=== PATIENT | female | born 1990 | race Caucasian/White ===

== ENCOUNTER 2022-11-19 07:38 | Inpatient (IN) ==
[2022-11-19] MEDS ORDERED: OXYTOCIN 30 UNITS/500 ML BAG IV PRN (09:32)
[2022-11-19] MEDS ORDERED: LIDOCAINE 1% LOCAL 20 ML VIAL INFIL PRN (09:32)
[2022-11-19] MEDS: ONDANSETRON INJ 2 MG/ML 2 ML VIAL IV PRN (09:33)
[2022-11-19] MEDS ORDERED: PENICILLIN G POTASSIUM 6 MU in DEXTROSE 5% 250 ML IV STA (09:42)
--- NOTE | 2022-11-19 09:49 | History & Physical Report ---
Date of Service November 19, 2022 Assessment & Plan (1) Polyhydramnios: Plan: Cervidil for cervical ripening Admission and Anticipated Discharge Date Admission Date: November 19, 2022 History of Present Illness Chief Complaint: induction of labor Primary Care Provider: [facility] PCP 32 F P0000 at 39 weeks admitted for IOL for polyhydramnios. GBS is positive. Allergies Allergy/AdvReac Type Severity Reaction Status Date / Time No Known Allergies Allergy Unknown Verified 09/23/22 11:18 Home Medications Medication Instructions Recorded Confirmed Type bupropion HCl 100 mg tablet,12 hr 100 mg PO .DAILY AT NOON 12/24/19 09/23/22 History sustained-release (Wellbutrin SR) fluoxetine 40 mg capsule (Prozac) 40 mg PO QAM 12/24/19 11/17/22 History lamotrigine 200 mg tablet 200 mg PO QAM 12/24/19 11/17/22 History (Lamictal) bupropion HCl 150 mg tablet,12 hr 300 mg PO QAM 09/21/21 11/17/22 History sustained-release lorazepam 0.5 mg tablet 0.5 mg PO DAILY PRN Anxiety 09/21/21 09/23/22 History methylphenidate HCl 10 mg tablet 10 mg PO DAILY 09/23/22 11/17/22 History methylphenidate HCl 20 mg tablet 20 mg PO QAM 09/23/22 11/17/22 History ondansetron HCl 8 mg tablet 8 mg PO Q8H PRN Nausea 09/23/22 09/23/22 History Patient History Medical History Anxiety and depression Bipolar 2 disorder, major depressive episode History of UTI Migraines Narcolepsy PTSD (post-traumatic stress disorder) Surgical History History of appendectomy History of wisdom tooth extraction Social History Smoking Status: Never smoker Second Hand Exposure: No; Hx Alcohol Use: No Hx Substance Use: No Preferred Language: Hungarian Communication Ability: Effective Prototype Sewer Required: No Beliefs That Will Affect Care: None marital status: Current Living Situation: Spouse Current Living Situation Comment: Lives with and 3 cats Other Information That Helps Us Care for You: No Feels Safe at Home: Yes Safety Concerns: Feels Safe At This Time Assistive Devices: None OB History polyhydramnios 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 History neg Review of Systems All systems reviewed & are unremarkable except as noted in HPI & below Physical Exam Constitutional: WD/WN, vitals as above Eyes: PERRL, conjunctivae normal, anicteric sclerae Respiratory: normal respiratory effort, lungs clear to auscultation Gastrointestinal (Abdomen): Inspection/Auscultation: abdomen normal to inspection Skin: no rashes, warm and dry Neurologic: patellar DTR's 2+ bilat, sensation intact Psychiatric: A+Ox3, euthymic affect Genitourinary: Manual OB Exam: + cervical dilation fingertip, + cervical effacement 50% and + station high OB Exam Monitor Tracing: + external FHT monitor used, + external uterine monitor used, + category I and + normal FHT variability Results & Data Vital Signs (Past 12 Hours) Vital Signs Temp Pulse Resp BP 11/19/22 08:17 37 C 114 H 16 127/86 11/19/22 09:33 88 122/67 11/19/22 08:42 93 H 132/80 11/19/22 07:50 16 11/19/22 07:50 37.0 C 16 11/19/22 07:48 114 H 127/86 Code Status & VTE Plan VTE Prophylaxis Plan VTE Prophylaxis will be ordered: No Monitoring External Monitor Cat 1
[2022-11-19 10:00] LABS: Hematocrit (blood only) 36.4 % (37.0-47.0); Hemoglobin 12.6 g/dl (12.0-16.0); Mean Corpuscular Hgb Conc 34.6 g/dL (32.0-36.0); Mean Corpuscular Volume 86.7 fL (80.0-100.0); Mean Platelet Volume 10.3 fL (9.4-12.4); Platelet Count 309 K/uL (130-400); RDW Coefficient of Variation 17.7 % (11.5-14.5); RDW Standard Deviation 55.6 fL (36.4-46.3); White Blood Count 10.08 K/ul (4.8-10.8)
[2022-11-19] MEDS ORDERED: DINOPROSTONE 10 MG INSERT PV ONE (10:00)
--- NOTE | 2022-11-19 10:59 | Labor Progress Brief Note ---
Date of Service November 19, 2022 Assessment & Plan Admission and Anticipated Discharge Date Admission Date: November 19, 2022 Physical Exam Genitourinary: OB Exam Monitor Tracing: + external FHT monitor used, + external uterine monitor used, + category I and + normal FHT variability Cervidil 10 mg placed vaginally Results & Data Vital Signs (Past 12 Hours) Vital Signs Temp Pulse Resp BP 11/19/22 08:17 37 C 114 H 16 127/86 11/19/22 10:14 86 120/72 11/19/22 09:33 88 122/67 11/19/22 08:42 93 H 132/80 11/19/22 07:50 16 11/19/22 07:50 37.0 C 16 11/19/22 07:48 114 H 127/86
[2022-11-19] MEDS: LACTATED RINGER'S 1,000 ML IV PRN (15:14)
[2022-11-19] MEDS ORDERED: BUTORPHANOL TARTRATE 1 MG/ML VIAL IV PRN (21:15)
[2022-11-20] MEDS ORDERED: miSOPROStoL 50 MCG TAB PO ONE (02:44)
[2022-11-20] MEDS ORDERED: OXYTOCIN 30 UNITS/500 ML BAG IV SCH (08:30)
--- NOTE | 2022-11-20 08:36 | Labor Progress Brief Note ---
Date of Service November 20, 2022 Assessment & Plan (1) Normal labor: Present on Admission?: No Plan start Pitocin to augment labor s/p antibiotics x 1 dose of antibiotics for GBS positive status pain meds including epidural as the pt desires Admission and Anticipated Discharge Date Admission Date: November 19, 2022 Physical Exam Constitutional: WD/WN, vitals as above well developed and well nourished Genitourinary: no vaginal lesions, no adnexal mass OB Exam Abdomen: + heart tones (140s, Good variability, Positive accelerations) and + vertex Manual OB Exam: + cervical dilation 3 cm, + cervical effacement 70% and + station high OB Exam Monitor Tracing: + external FHT monitor used and + category I Results & Data Vital Signs (Past 12 Hours) Vital Signs Temp Pulse Resp BP 11/20/22 07:46 36.5 C 79 18 117/71 11/20/22 07:16 18 11/20/22 07:16 36.5 C 18 11/20/22 07:18 79 117/71 11/20/22 05:09 36.7 C 11/20/22 03:59 18 11/20/22 03:59 36.6 C 18 11/20/22 03:58 77 111/61 11/19/22 22:21 36.7 C 11/19/22 22:20 70 129/86 Supervising Physician Co-Signing Physician Notes Dr. Renny Clay MD.
[2022-11-20] MEDS: ONDANSETRON INJ 2 MG/ML 2 ML VIAL IV PRN ×2 (08:41→21:18)
[2022-11-20] MEDS: lamoTRIgine 100 MG TAB PO SCH (09:04)
[2022-11-20] MEDS: buPROPion XL 300 MG TABCR PO SCH (09:05)
[2022-11-20] MEDS: FLUoxetine HCL 20 MG CAP PO SCH (09:06)
[2022-11-20] MEDS: METHYLPHENIDATE HCL 10 MG TABLET PO SCH (09:25)
[2022-11-20] MEDS: PENICILLIN G POTASSIUM 3 MU in DEXTROSE 5% 100 ML IV PRN ×4 (09:27→23:32)
[2022-11-20] MEDS: LACTATED RINGER'S 1,000 ML IV PRN ×2 (11:43→22:57)
[2022-11-20] MEDS ORDERED: ePHEDrine sulfate 50 MG/ML AMP ONE (13:49)
[2022-11-20] MEDS ORDERED: fentaNYL 2MCG/ML ROPIVACAINE 1.25MG/ML 100 ML BAG EPI ONE (13:50)
[2022-11-20] MEDS ORDERED: SODIUM CHLORIDE 0.9% PF INJ 10 ML VIAL ONE (13:50)
[2022-11-20] MEDS ORDERED: LIDOCAINE 2%/EPINEPHRINE 1:200,000 20 ML PF ONE (13:50)
[2022-11-20] MEDS ORDERED: fentaNYL citrate PF 100 MCG/2 ML VIAL ONE ×2 (13:50→23:47)
[2022-11-20] MEDS ORDERED: BUPIVACAINE 0.25% PF 30 ML VIAL ONE (13:50)
--- NOTE | 2022-11-20 15:10 | Anesthesiology Consultation ---
Date of Service November 20, 2022 Assessment & Plan Chart Review Chart Review: Acceptable Risk for Labor Epidural Consults Requested none ASA [id number] Proposed Anesthesia Anesthesia Type: CSE History Height/Weight Height: 5 ft 1 in Weight: 85.729 kg Allergies Allergy/AdvReac Type Severity Reaction Status Date / Time No Known Allergies Allergy Unknown Verified 09/23/22 11:18 Medications Home Medications Medication Instructions Recorded Confirmed Last Taken fluoxetine 40 mg capsule (Prozac) 40 mg PO QAM 12/24/19 11/19/22 11/19/22 07:00 lamotrigine 200 mg tablet 200 mg PO QAM 12/24/19 11/19/22 11/19/22 07:00 (Lamictal) bupropion HCl 150 mg tablet,12 hr 300 mg PO QAM 09/21/21 11/19/22 11/19/22 07:00 sustained-release lorazepam 0.5 mg tablet 0.5 mg PO DAILY PRN Anxiety 09/21/21 11/19/22 11/25/21 methylphenidate HCl 10 mg tablet 10 mg PO DAILY 09/23/22 11/19/22 11/18/22 15:00 methylphenidate HCl 20 mg tablet 20 mg PO QAM 09/23/22 11/19/22 11/19/22 07:00 ondansetron HCl 8 mg tablet 8 mg PO Q8H PRN Nausea 09/23/22 11/19/22 09/22/22 09 :30 Active Medications Generic Name Dose Route Start Last Admin Trade Name Freq PRN Reason Stop Dose Admin Bupropion HCl 300 mg 11/20/22 09:00 11/20/22 09:05 Bupropion Xl 300 Mg Tabcr PO 12/20/22 08:59 300 mg QAM ABEL Administration Butorphanol Tartrate 1 mg 11/19/22 21:15 11/20/22 11:47 Butorphanol Tartrate 1 Mg/Ml Vial IV 12/19/22 21:14 1 mg Q2HWA PRN Administration Pain Fluoxetine HCl 40 mg 11/20/22 09:00 11/20/22 09:06 Fluoxetine Hcl 20 Mg Cap PO 12/20/22 08:59 40 mg QAM ABEL Administration Lactated Ringer's 1,000 mls @ 125 mls/hr 11/19/22 09:32 11/20/22 11:43 Lr IV 11/21/22 09:31 125 mls/hr .Q8H PRN Administration L&D Protocol Protocol Penicillin G Potassium 3 mu/ 106 mls @ 100 mls/hr 11/19/22 12:32 11/20/22 13:44 Dextrose IV 11/29/22 12:31 100 mls/hr Q4H PRN Administration GBS(+) Until Delivery Oxytocin 30 units in 500 mls @ 8 mls/hr 11/20/22 08:30 11/20/22 13:07 Pitocin IV 12/20/22 08:29 0.48 units/hr .Q24H ABEL 8 mls/hr Titration Protocol 0.48 UNITS/HR Lamotrigine 200 mg 11/20/22 09:00 11/20/22 09:04 Lamotrigine 100 Mg Tab PO 12/20/22 08:59 200 mg DAILY ABEL Administration Lidocaine HCl 20 ml 11/19/22 09:32 11/20/22 15:06 Lidocaine 1% Local 20 Ml Vial INFIL 12/19/22 09:31 3 ml ONCE PRN Administration Perineal/vaginal Repair Methylphenidate HCl 20 mg 11/20/22 09:00 11/20/22 09:25 Methylphenidate Hcl 10 Mg Tablet PO 12/04/22 08:59 20 mg QAM ABEL Administration Ondansetron HCl 4 mg 11/19/22 09:23 11/20/22 08:41 Ondansetron Inj 2 Mg/Ml 2 Ml Vial IV 12/19/22 09:22 4 mg Q4H PRN Administration Nausea Past Medical History Medical History Anxiety and depression Bipolar 2 disorder, major depressive episode History of UTI Migraines Narcolepsy PTSD (post-traumatic stress disorder) Past Surgical History Surgical History History of appendectomy History of wisdom tooth extraction Social History Smoking Status: Never smoker Hx Alcohol Use: No Hx Substance Use: No substance use type: does not use Physical Exam Vital Signs Last Vital Signs Temp 36.7 C 11/20/22 13:07 Pulse 82 11/20/22 15:07 Resp 18 11/20/22 11:32 BP 122/71 11/20/22 15:07 Pulse Ox 99 11/20/22 15:05 Testing Laboratory Results 11/19/22 09:49 Blood Type A Positive 11/19/22 09:49 Antibody Screen NEGATIVE 11/19/22 09:49
[2022-11-20] MEDS ORDERED: LIDOCAINE 2%/EPINEPHRINE 1:200,000 20 ML PF EPI STA (15:11)
[2022-11-20] MEDS ORDERED: BUPIVACAINE 0.25% PF 30 ML VIAL EPI PRN (15:11)
[2022-11-20] MEDS ORDERED: SODIUM CHLORIDE 0.9% PF INJ 10 ML VIAL EPI PRN (15:11)
[2022-11-20] MEDS ORDERED: LIDOCAINE 2% MPF LOCAL 5 ML VIAL EPI PRN (15:11)
[2022-11-20] MEDS ORDERED: NALOXONE HCL 0.4 MG/1 ML VIAL/CARP IV PRN (15:11)
[2022-11-20] MEDS ORDERED: ePHEDrine sulfate 50 MG/ML AMP IV PRN (15:11)
[2022-11-20] MEDS ORDERED: BUPIVACAINE 0.25% PF 30 ML VIAL EPI STA (15:11)
[2022-11-20] MEDS ORDERED: fentaNYL citrate PF 100 MCG/2 ML VIAL EPI STA (15:11)
[2022-11-20] MEDS ORDERED: NALOXONE HCL 1 MG in SODIUM CHLORIDE 0.9% 1000ML 1,000 ML IV PRN (15:11)
[2022-11-20] MEDS ORDERED: fentaNYL citrate PF 100 MCG/2 ML VIAL EPI PRN (15:11)
[2022-11-20] MEDS ORDERED: ROPIVACAINE 0.5% PF 5 MG/ML 20 ML VIAL EPI PRN (15:11)
[2022-11-20] MEDS ORDERED: diphenhydrAMINE 50 MG/ML VIAL IV PRN (15:11)
[2022-11-20] MEDS ORDERED: SODIUM CHLORIDE 0.9% PF INJ 10 ML VIAL EPI STA (15:11)
[2022-11-20] MEDS ORDERED: NALBUPHINE HCL INJ 10 MG/ML AMP IV PRN (15:11)
[2022-11-20] MEDS: fentaNYL 2MCG/ML ROPIVACAINE 1.25MG/ML 100 ML BAG EPI PRN (22:56)
[2022-11-20] MEDS ORDERED: NURSING L&D Epidural Breakthrough Pain Update ONE (22:58)
--- NOTE | 2022-11-20 23:54 | Anesthesia Procedure Note ---
Date of Service November 20, 2022 Anesthesia Epidural Re-Dose Vital Signs Temp Pulse Resp BP Pulse Ox 36.7 C 89 18 152/65 H 100 11/20/22 23:05 11/20/22 23:50 11/20/22 23:05 11/20/22 23:50 11/20/22 23:50 Notes Pain Intensity: 9 Dilatation (cm): 7.0 Effacement (%): 100 Heart Rate: 150 Called by nursing to evaluate epidural as the patient is having increased pain. The epidural was re-dosed with the following medications (all medications via epidural route) after negative aspiration of the epidural catheter for CSF/HEME. 2% lidocaine 5ml with fentanyl 100mcg. After Epidural Re-Dose Mental Status: alert / awake / arousable Pain: improving with treatment Airway Patency, RR, SpO2: stable & adequate BP & HR: stable & adequate
[2022-11-21] MEDS: PENICILLIN G POTASSIUM 3 MU in DEXTROSE 5% 100 ML IV PRN ×2 (03:54→08:10)
[2022-11-21] MEDS: fentaNYL 2MCG/ML ROPIVACAINE 1.25MG/ML 100 ML BAG EPI PRN ×2 (04:37→10:24)
[2022-11-21] MEDS ORDERED: fentaNYL citrate PF 100 MCG/2 ML VIAL ONE (04:54)
--- NOTE | 2022-11-21 05:00 | Anesthesia Procedure Note ---
Date of Service November 21, 2022 Anesthesia Epidural Re-Dose Vital Signs Temp Pulse Resp BP Pulse Ox 37.0 C 104 H 18 147/89 H 98 11/21/22 03:56 11/21/22 04:58 11/21/22 03:56 11/21/22 04:58 11/21/22 04:55 Notes Pain Intensity: 0 Dilatation (cm): 8.0 Effacement (%): 100 Heart Rate: 150 Called by nursing to evaluate epidural as the patient is having increased pain. The epidural was re-dosed with the following medications (all medications via epidural route) after negative aspiration of the epidural catheter for CSF/HEME. 2% lidocaine 5ml with fentanyl 100mcg. After Epidural Re-Dose Mental Status: alert / awake / arousable Pain: improving with treatment Airway Patency, RR, SpO2: stable & adequate BP & HR: stable & adequate
[2022-11-21] MEDS: LACTATED RINGER'S 1,000 ML IV PRN (06:31)
[2022-11-21] MEDS ORDERED: LIDOCAINE 2% MPF LOCAL 5 ML VIAL ONE (07:04)
--- NOTE | 2022-11-21 07:12 | Anesthesia Procedure Note ---
Date of Service November 21, 2022 Anesthesia Epidural Re-Dose Vital Signs Temp Pulse Resp BP Pulse Ox 36.6 C 96 H 16 121/66 98 11/21/22 05:05 11/21/22 07:08 11/21/22 05:22 11/21/22 07:08 11/21/22 07:05 Notes Pain Intensity: 0 Dilatation (cm): 8.0 Effacement (%): 100 Heart Rate: 150 Called by nursing to evaluate epidural as the patient is having increased pain. The epidural was re-dosed with the following medications (all medications via epidural route) after negative aspiration of the epidural catheter for CSF/HEME. 2% lidocaine 5ml. After Epidural Re-Dose Mental Status: alert / awake / arousable Pain: improving with treatment Airway Patency, RR, SpO2: stable & adequate BP & HR: stable & adequate
--- NOTE | 2022-11-21 07:18 | Labor Progress Brief Note ---
Date of Service November 21, 2022 Assessment & Plan (1) Normal labor: Present on Admission?: No Plan labor down and start pushing when the pt feels pressure Admission and Anticipated Discharge Date Admission Date: November 19, 2022 Physical Exam Constitutional: WD/WN, vitals as above Genitourinary: OB Exam Abdomen: + heart tones (140s, Good variability, positive accelerations ), + vertex and + regular contractions (q 2 to 3 min) Manual OB Exam: + cervical dilation 10 cm, + cervical effacement 100% and + station + 1 OB Exam Monitor Tracing: + external FHT monitor used and + cat egory I Results & Data Vital Signs (Past 12 Hours) Vital Signs Temp Pulse Resp BP Pulse Ox 11/21/22 07:14 97 H 116/59 L 11/21/22 07:12 103 H 125/69 11/21/22 07:10 101 H 118/68 99 11/21/22 07:08 96 H 121/66 11/21/22 07:05 110 H 98 11/21/22 07:00 110 H 100 11/21/22 06:56 87 115/60 11/21/22 06:55 88 98 11/21/22 06:50 97 H 99 11/21/22 06:45 120 H 97 11/21/22 06:40 84 97 11/21/22 06:41 86 166/80 H 11/21/22 06:35 81 97 11/21/22 06:30 83 97 11/21/22 06:26 77 137/70 11/21/22 06:25 78 96 11/21/22 06:20 81 97 11/21/22 06:15 80 97 11/21/22 06:10 80 96 11/21/22 06:11 80 140/73 11/21/22 06:05 78 97 11/21/22 06:00 80 97 11/21/22 05:55 79 143/70 H 97 11/21/22 05:50 78 97 11/21/22 05:45 82 97 11/21/22 05:40 80 97 11/21/22 05:41 87 136/74 11/21/22 05:35 78 97 11/21/22 05:30 79 97 11/21/22 05:25 86 97 11/21/22 05:22 83 16 140/66 11/21/22 05:20 85 97 11/21/22 05:19 85 143/70 H 11/21/22 05:16 83 142/69 H 11/21/22 05:15 84 97 11/21/22 05:13 86 147/71 H 11/21/22 05:10 98 11/21/22 05:10 85 11/21/22 05:10 86 149/72 H 11/21/22 05:07 80 148/72 H 11/21/22 05:05 36.6 C 81 97 11/21/22 05:03 91 H 158/73 H 11/21/22 05:00 109 H 97 11/21/22 05:01 113 H 167/88 H 11/21/22 04:58 104 H 147/89 H 11/21/22 04:55 104 H 98 11/21/22 04:50 106 H 98 11/21/22 04:45 100 H 154/68 H 96 11/21/22 04:40 106 H 98 11/21/22 04:35 110 H 98 11/21/22 04:30 102 H 98 11/21/22 04:29 110 H 133/75 11/21/22 04:25 99 H 97 11/21/22 04:20 95 H 98 11/21/22 04:15 103 H 97 11/21/22 04:14 127 H 114/56 L 11/21/22 04:10 128 H 97 11/21/22 04:05 98 H 98 11/21/22 04:00 101 H 96 11/21/22 03:58 107 H 127/77 11/21/22 03:56 18 11/21/22 03:56 37.0 C 18 11/21/22 03:55 100 H 97 11/21/22 03:50 94 H 96 11/21/22 03:45 96 H 97 11/21/22 03:43 103 H 110/62 11/21/22 03:40 101 H 98 11/21/22 03:35 93 H 97 11/21/22 03:30 97 H 18 98 11/21/22 03:28 88 104/54 L 11/21/22 03:25 91 H 98 11/21/22 03:20 94 H 98 11/21/22 03:15 89 98 11/21/22 03:14 88 116/59 L 11/21/22 03:10 87 98 11/21/22 03:05 86 98 11/21/22 03:00 88 20 100 11/21/22 02:58 86 127/64 11/21/22 02:55 127 H 100 11/21/22 02:50 104 H 99 11/21/22 02:45 94 H 99 11/21/22 02:43 88 132/78 11/21/22 02:40 80 98 11/21/22 01:47 36.9 C 11/21/22 02:35 88 98 11/21/22 02:30 78 98 11/21/22 02:28 86 128/76 11/21/22 02:25 75 98 11/21/22 02:20 83 98 11/21/22 02:15 75 99 11/21/22 02:13 72 129/70 11/21/22 02:10 84 98 11/21/22 02:05 76 99 11/21/22 02:00 74 98 11/21/22 01:58 78 132/74 11/21/22 01:55 79 99 11/21/22 01:50 75 99 11/21/22 01:45 98 11/21/22 01:45 90 11/21/22 01:44 100 H 85 L 11/21/22 01:45 97 H 164/60 H 11/21/22 01:40 96 H 98 11/21/22 01:35 87 98 11/21/22 01:30 90 98 11/21/22 01:28 81 103/56 L 11/21/22 01:25 86 98 11/21/22 01:20 85 97 11/21/22 01:15 90 98 11/21/22 01:13 83 16 97/55 L 11/21/22 01:10 78 98 11/21/22 01:05 85 98 11/21/22 01:00 87 97 11/21/22 00:59 76 106/59 L 11/21/22 00:55 85 97 11/21/22 00:50 77 97 11/21/22 00:45 82 98 11/21/22 00:43 86 100/59 L 11/21/22 00:40 78 97 11/21/22 00:35 76 97 11/21/22 00:30 83 98 11/21/22 00:27 84 107/59 L 11/21/22 00:25 16 11/21/22 00:25 36.9 C 72 16 98 11/21/22 00:24 76 116/56 L 11/21/22 00:21 96 H 105/62 11/21/22 00:20 87 98 11/21/22 00:18 74 125/64 11/21/22 00:15 105 H 99 11/21/22 00:16 108 H 116/68 11/21/22 00:12 83 109/57 L 11/21/22 00:10 84 98 11/21/22 00:09 88 95/50 L 11/21/22 00:05 84 98 11/21/22 00:06 83 98/57 L 11/21/22 00:03 84 105/59 L 11/21/22 00:00 84 109/59 L 98 11/20/22 23:57 81 112/59 L 11/20/22 23:55 84 108/59 L 98 11/20/22 23:50 89 152/65 H 100 11/20/22 23:47 100 H 146/62 H 11/20/22 23:45 90 100 11/20/22 23:40 99 H 99 11/20/22 23:35 96 H 99 11/20/22 23:32 90 119/70 11/20/22 23:30 89 99 11/20/22 23:25 90 99 11/20/22 23:20 88 100 11/20/22 23:17 87 116/58 L 11/20/22 23:15 78 99 11/20/22 23:10 92 H 99 11/20/22 23:05 18 11/20/22 23:05 36.7 C 83 18 99 11/20/22 23:00 96 H 99 11/20/22 22:55 75 99 11/20/22 22:50 77 99 11/20/22 22:45 67 99 11/20/22 22:46 65 117/67 11/20/22 22:40 73 98 11/20/22 22:35 70 99 11/20/22 22:31 77 133/79 11/20/22 22:30 74 98 11/20/22 22:25 70 98 11/20/22 22:20 74 98 11/20/22 22:16 69 132/73 11/20/22 22:15 76 98 11/20/22 22:10 70 98 11/20/22 22:05 89 99 11/20/22 22:02 89 135/76 11/20/22 22:00 92 H 18 99 11/20/22 21:55 80 100 11/20/22 21:50 85 100 11/20/22 21:46 90 130/80 11/20/22 21:45 92 H 100 11/20/22 21:40 85 100 11/20/22 21:35 80 100 11/20/22 21:32 82 129/76 11/20/22 21:30 75 18 99 11/20/22 21:25 85 99 11/20/22 21:20 88 100 11/20/22 21:17 79 133/85 11/20/22 21:15 75 99 11/20/22 21:10 122 H 100 11/20/22 21:05 117 H 100 11/20/22 21:02 133 H 91/55 L 11/20/22 21:00 36.7 C 83 18 100 11/20/22 20:55 85 100 11/20/22 20:50 85 100 11/20/22 20:48 88 116/75 11/20/22 20:45 94 H 100 11/20/22 20:40 95 H 100 11/20/22 20:35 86 100 11/20/22 20:32 84 119/61 11/20/22 20:30 81 18 99 11/20/22 20:25 92 H 100 11/20/22 20:20 77 100 11/20/22 20:16 86 113/71 11/20/22 20:15 98 H 97 11/20/22 20:10 92 H 100 11/20/22 20:05 82 100 11/20/22 20:02 89 116/57 L 77 L 11/20/22 20:00 96 H 18 99 11/20/22 19:55 89 96 11/20/22 19:56 87 86 L 11/20/22 19:50 81 100 11/20/22 19:46 75 137/83 11/20/22 19:45 82 99 11/20/22 19:40 74 99 11/20/22 19:35 96 H 100 11/20/22 19:32 85 128/73 11/20/22 19:30 36.7 C 88 18 100 11/20/22 19:25 76 100 11/20/22 19:20 90 100 11/20/22 19:17 69 140/76 Supervising Physician Co-Signing Physician Notes Dr. Radha Clay MD
[2022-11-21] MEDS: METHYLPHENIDATE HCL 10 MG TABLET PO SCH (08:54)
[2022-11-21] MEDS ORDERED: METHYLPHENIDATE HCL 10 MG TABLET PO SCH (09:00)
--- NOTE | 2022-11-21 13:10 | Anesthesia Procedure Note ---
Date of Service November 21, 2022 Anesthesia Epidural Re-Dose Vital Signs Temp Pulse Resp BP Pulse Ox 98.4 F 124 H 26 H 133/63 84 L 11/21/22 12:50 11/21/22 13:08 11/21/22 12:25 11/21/22 13:03 11/21/22 13:08 Notes Pain Intensity: 10 Dilatation (cm): 10.0 Effacement (%): 100 Heart Rate: 150 Called by nursing to evaluate epidural as the patient is having increased pain. The epidural was re-dosed with the following medications after negative aspiration of the epidural catheter for CSF/HEME. 3mL of 0.25% Bupivacaine and 75mcg of fentanyl After Epidural Re-Dose Mental Status: alert / awake / arousable Pain: improving with treatment Airway Patency, RR, SpO2: stable & adequate BP & HR: stable & adequate
[2022-11-21] MEDS ORDERED: miSOPROStoL 200 MCG TAB ONE (13:52)
[2022-11-21] MEDS ORDERED: METHYLERGONOVINE MALEATE 0.2 MG/ML AMP ONE (13:53)
--- NOTE | 2022-11-21 14:01 | Delivery Summary ---
Vaginal Delivery Summary Date of Service November 21, 2022 Vaginal Delivery Summary Delivery Note live female OP delivered over intact perineum with nuchal cord x1 reduced at delivery. Apgars and weight pending. Cord for full gasses obtained followed by cord blood. Post bleeding noted and atony with Methergine 0.2 mg given IM. Bladder drained with red rubber 100 ml. concentrated urine. Placenta delivered spontaneously and intact. First degree tear repaired with 3/0 Vicryl suture. Cytotec 1000mcg placed rectally. EBL 500 ml. Final sponge, needle and instrument count are correct. Mom and baby stable.
--- NOTE | 2022-11-21 14:07 | Anesthesia Procedure Note ---
Date of Service November 21, 2022 Anesthesia Post Epidural Note Vital Signs Vital Signs: Temp Pulse Resp BP Pulse Ox 98.4 F 103 H 26 H 134/62 85 L 11/21/22 12:50 11/21/22 14:01 11/21/22 12:25 11/21/22 14:01 11/21/22 13:36 Pain Intensity Lower Abdomen: Pain Intensity: 9 Notes Mental Status: alert / awake / arousable and participated in evaluation Nausea / Vomiting: adequately controlled Pain: adequately controlled Airway Patency, RR, SpO2: stable & adequate BP & HR: stable & adequate Hydration State: stable & adequate Neuraxial Anesthesia: was administered and sensory block is resolving Anesthetic Complications: no major complications apparent and Pt Satisfied with anesthetic care Epidural: Removed without complications and With tip intact
[2022-11-21] MEDS: buPROPion XL 300 MG TABCR PO SCH (14:10)
[2022-11-21] MEDS: lamoTRIgine 100 MG TAB PO SCH (14:10)
[2022-11-21] MEDS: FLUoxetine HCL 20 MG CAP PO SCH (14:10)
[2022-11-21] MEDS ORDERED: DIPHTHERIA/TETANUS/PERTUSSIS Vaccine (Tdap, Age 7+yrs) 0.5mL SYR/VL IM ONE (15:09)
[2022-11-21] MEDS ORDERED: ACETAMINOPHEN 325 MG TAB PO PRN (15:09)
[2022-11-21] MEDS ORDERED: BENZOCAINE 20% AER SPR 82.5 GM CAN EXT PRN (15:09)
[2022-11-21] MEDS ORDERED: OXYTOCIN 30 UNITS/500 ML BAG IV PRN (15:09)
[2022-11-21] MEDS ORDERED: HYDROCORTISONE ACETATE 25 MG SUPP PR PRN (15:09)
[2022-11-21] MEDS ORDERED: bisacodyL 10 MG SUPP PR PRN (15:09)
[2022-11-21] MEDS: IBUPROFEN 600 MG TAB PO PRN ×2 (15:20→19:53)
[2022-11-21] MEDS ORDERED: Nursing to Pharmacy Communication SCH (15:30)
[2022-11-21] MEDS: DOCUSATE SODIUM 100 MG CAP PO SCH (20:42)
[2022-11-21 21:35] LABS: Base Excess Cord Venous Blood -8.3 mEq/L (-7.7-1.9); Cord Venous Blood HCO3 21 mmol/L (18.4-26.8); Cord Venous Blood PCO2 57 mmHg (30.4-57.2); Cord Venous Blood PO2 26 mmHg (14.1-43.3); Cord Venous Blood pH 7.17 (7.20-7.44); O2 Saturation Cord Venous Bld < 60.0 % (<68)
[2022-11-22] MEDS: IBUPROFEN 600 MG TAB PO PRN ×3 (03:26→20:43)
--- NOTE | 2022-11-22 07:16 | Obstetrical Progress Note ---
Date of Service November 22, 2022 Subjective Ambulation: ambulating normally Voiding: no voiding problems Passing Gas:: Yes Diet Tolerance:: regular diet Lochia:: Small Feeding Type:: breast feeding Current Pain Level(1-10): 0 doing well Physical Exam Constitutional WD/WN, vitals as above Gastrointestinal (Abdomen) Inspection/Auscultation: abdomen normal to inspection fundus firm Musculoskeletal Extremities: extremities normal to inspection Skin no rashes, warm and dry Neurologic patellar DTR's 2+ bilat, sensation intact Psychiatric A+Ox3, euthymic affect Results & Data Vital Signs (Past 12 Hours) Vital Signs Temp Pulse Resp BP BP Pulse Ox O2 Del Method 11/22/22 03:30 36.7 C 77 18 107/70 99 Room Air 11/21/22 23:55 36.7 C 80 18 100/58 L 96 Room Air 11/21/22 20:45 37.0 C 86 16 106/67 98 Room Air Laboratory Results 11/19/22 11/19/22 11/19/22 08:00 09:49 09:49 WBC 10.08 RBC 4.20 Hgb 12.6 Hct 36.4 L MCV 86.7 MCH 30.0 MCHC 34.6 RDW Std Deviation 55.6 H RDW Coeff of Cherelle 17.7 H Plt Count 309 MPV 10.3 Cord VBG pH Cord VBG pCO2 Cord VBG pO2 Cord VBG HCO3 Cord VBG Base Excess Cord VBG O2 Sat Blood Gas Comments SARS-CoV-2, RNA, NAAT NEGATIVE Blood Type A Positive Antibody Screen NEGATIVE 11/21/22 13:26 WBC RBC Hgb Hct MCV MCH MCHC RDW Std Deviation RDW Coeff of Cherelle Plt Count MPV Cord VBG pH 7.17 L Cord VBG pCO2 57 Cord VBG pO2 26 Cord VBG HCO3 21 Cord VBG Base Excess -8.3 L Cord VBG O2 Sat < 60.0 Blood Gas Comments A SARS-CoV-2, RNA, NAAT Blood Type Antibody Screen
[2022-11-22 07:26] LABS: Hemoglobin 9.4 g/dl (12.0-16.0); Mean Corpuscular Hemoglobin 30.4 pg (25.0-34.0); Mean Corpuscular Hgb Conc 34.8 g/dL (32.0-36.0); Mean Corpuscular Volume 87.4 fL (80.0-100.0); Platelet Count 220 K/uL (130-400); RDW Coefficient of Variation 17.8 % (11.5-14.5); RDW Standard Deviation 56.2 fL (36.4-46.3); Red Blood Count 3.09 M/uL (4.20-5.40); White Blood Count 15.43 K/ul (4.8-10.8)
[2022-11-22] MEDS: PRENATAL VITAMIN 1 TAB PO SCH (09:10)
[2022-11-22] MEDS: DOCUSATE SODIUM 100 MG CAP PO SCH ×2 (09:10→20:43)
[2022-11-22] MEDS: lamoTRIgine 100 MG TAB PO SCH (09:11)
[2022-11-22] MEDS: buPROPion XL 300 MG TABCR PO SCH (09:11)
[2022-11-22] MEDS: FLUoxetine HCL 20 MG CAP PO SCH (09:11)
[2022-11-22] MEDS: METHYLPHENIDATE HCL 10 MG TABLET PO SCH (09:12)
[2022-11-22] MEDS ORDERED: bisacodyL 5 MG TABEC PO SCH (20:00)
[2022-11-23] MEDS: IBUPROFEN 600 MG TAB PO PRN ×2 (02:06→09:35)
[2022-11-23 06:26] LABS: Hematocrit (blood only) 25.7 % (37.0-47.0); Hemoglobin 8.9 g/dl (12.0-16.0)
[2022-11-23] MEDS: DOCUSATE SODIUM 100 MG CAP PO SCH (08:59)
[2022-11-23] MEDS: PRENATAL VITAMIN 1 TAB PO SCH (08:59)
[2022-11-23] MEDS: METHYLPHENIDATE HCL 10 MG TABLET PO SCH (09:00)
[2022-11-23] MEDS: buPROPion XL 300 MG TABCR PO SCH (09:01)
[2022-11-23] MEDS: lamoTRIgine 100 MG TAB PO SCH (09:02)
[2022-11-23] MEDS: FLUoxetine HCL 20 MG CAP PO SCH (09:02)
--- NOTE | 2022-11-23 09:50 | Obstetrical Progress Note ---
Date of Service November 23, 2022 Assessment & Plan (1) Normal course: PPD #2 pt doing well No complaints d/c home with instructions Subjective Ambulation: ambulating normally Voiding: no voiding problems Passing Gas:: Yes Diet Tolerance:: regular diet Lochia:: Small Feeding Type:: breast feeding Review of Systems All systems reviewed & are unremarkable except as noted in HPI & below Physical Exam Constitutional WD/WN, vitals as above well developed and well nourished Eyes PERRL, conjunctivae normal, anicteric sclerae Neck trachea midline, no thyromegaly Respiratory normal respiratory effort, lungs clear to auscultation Auscultation: no crackles, no rales and no wheezes Cardiovascular RRR, no murmur, no edema Gastrointestinal (Abdomen) normal bowel sounds, soft, nontender, no hepatosplenomegaly Uterus is below umbilicus Musculoskeletal no cyanosis or clubbing, extremities motor strength 5/5 Skin no rashes, warm and dry Neurologic patellar DTR's 2+ bilat, sensation intact Psychiatric A+Ox3, euthymic affect Genitourinary normal external appearance Results & Data Vital Signs (Past 12 Hours) Vital Signs Temp Pulse Resp BP Pulse Ox O2 Del Method 11/23/22 07:48 36.5 C 60 20 107/68 99 Room Air
== END 2022-11-23 13:10 | disposition home or self-care (01) | DRG 806 ==
LOC: 4S1 07:38 → 4E2 11-21 16:00